=== PATIENT | female | born 1970 | race Caucasian/White ===

== ENCOUNTER 2016-05-14 09:45 | Emergency (ER) | payer OTHER ==
[~2016-05-14] VITALS: Ht 165.1 cm; Wt 47.6 kg
[~2016-05-14 09:45] MED LIST: ADVAIR 250-501 EACH INH; ALBUTEROL2.5 MG/3 M INH/SOL; AMLODIPINE BES2.5 M1 PO; ASPIRIN EC81 M1 PO; BACLOFEN10 M1 PO; BENZTROPINE ME0.5 M1 PO; BUTRANS1 EAC2 TOP; DUAC 1.2-5% GEL45 GM TOP; FLEXERIL10 MG PO; LORAZEPAM0.5 M1 PO; LYRICA100 M1 PO; MOTRIN 600 MG600 MG PO; OLANZAPINE15 M1 PO; OXYCODONE HCL5 M1 PO; OXYCODONE5 M1 PO; PAXIL10 M1 PO; PRAVASTATIN SOD10 M2 PO; PROAIR HFA8.5 GM INH; PYRIDOXINE HCL500 MG PO; VICODIN HP 3001 TAB PO
--- NOTE | 2016-05-14 10:01 | ED GENERAL ADULT ---
History of Present Illness General Chief Complaint: Fall Stated Complaint: FALL 05/07 HEAD PAIN Source: patient, old records Exam Limitations: no limitations Vital Signs & Intake/Output Vital Signs & Intake/Output Vital Signs Date Time Temp Pulse Resp B/P Pulse O2 O2 Flow FiO2 Ox Delivery Rate 05/14 1042 97.8 75 20 137/98 98 Room Air 05/14 0949 98.5 85 18 166/110 98 Room Air Allergies Coded Allergies: Penicillins (RASH 09/16/15) trazodone (RASH 09/16/15) Reconcile Medications Albuterol Sulfate 2.5 MG/3 ML VIAL.NEB 1 Vial INH/JERALD BID PRN COPD (Reported) Albuterol Sulfate (Proair Hfa) 8.5 GM HFA.AER.AD 2 PUF INH Q4-6 PRN PRN COPD (Reported) Amlodipine Besylate 5 MG TABLET 1 TAB PO DAILY B/P (Reported) Aspirin (Ecotrin*) 81 MG TABLET.DR 1 TAB PO DAILY HEART/BLOOD (Reported) Benztropine Mesylate 0.5 MG TABLET 1 TAB PO BID MENTAL HEALTH (Reported) Buprenorphine (Butrans) 1 EACH PATCH.TDWK 20 MCG TOP QW PAIN (Reported) Diazepam 2 MG TABLET 1 TAB PO BID MUSCLE SPASMS (Reported) Fluticasone/Salmeterol (Advair 250-50 Diskus) 1 EACH BLST.W.DEV 1 PUF INH BID COPD (Reported) Olanzapine 20 MG TABLET 0.5 TAB PO QPM MENTAL HEALTH (Reported) Oxycodone HCl 5 MG TABLET 1 TAB PO TID MODERATE TO SEVERE PAIN (Reported) Paroxetine HCl (Paxil) 10 MG TABLET 1 TAB PO DAILY MENTAL HEALTH (Reported) Pravastatin Sodium 10 MG TABLET 1 TAB PO DAILY CHOLESTEROL (Reported) Pregabalin (Lyrica) 100 MG CAPSULE 1 CAP PO TID NERVE PAIN (Reported) Triage Note: 46 YO FEMALE TO TRIAGE C/O CHAPMAN AND NAUSEA SINCE FALL ON 05/07. STATES SHE HIT THE FRONT OF THE L SIDE OF HER HEAD. DENIES LOC. PT HYPERTENSIVE IN TRIAGE, 166/110. STATES SHE JUST TOOK HER BP MEDS Triage Nurses Notes Reviewed? yes HPI: Patient is a 46 year old female presents complaining of headaches status post fall on 05/07. Patient tripped and fell hitting her head against a shelf. Left sided headache that radiates from the left frontal to left parietal areas. Vomiting onset on 05/09, numerous times, no vomiting since 05/09/16. Pain is currently moderate, worsens with palpation and light. Patient reports that she has been nauseous since, has had decreased appetite and oral intake. Denies loss of consciousness, numbness, weakness, any change from her chronic neck pain. (LUIS FELIPE HAMMOND) Past History Travel History Traveled to [place] past 21 day No Medical History Any Pertinent Medical History? 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 No (LUIS FELIPE HAMMOND) Review of Systems Review of Systems Constitutional: Denies: chills, fever. EENTM: Denies: blurred vision. Respiratory: Reports: no symptoms. Cardiovascular: Denies: chest pain, syncope. GI: Reports: nausea, vomiting (resolved). Denies: abdominal pain. Musculoskeletal: Reports: back pain (chronic), neck pain (chronic). Skin: Reports: no symptoms. Neurological/Psychological: Reports: see HPI. Hematologic/Endocrine: Reports: no symptoms. Immunologic/Allergic: Reports: no symptoms. (LUIS FELIPE HAMMOND) Physical Exam Physical Exam General Appearance: well developed/nourished, alert, awake Head: left-sided scalp tenderness, no palpable step-offs or deformities Eyes: Bilateral: normal appearance, PERRL, EOMI. Ears, Nose, Throat: normal pharynx, normal ENT inspection, hearing grossly normal Neck: normal inspection, supple, full range of motion, no midline tenderness Respiratory: normal breath sounds, no respiratory distress, lungs clear Cardiovascular: regular rate/rhythm Gastrointestinal: soft, non-tender Back: normal inspection, normal range of motion Extremities: normal inspection, normal capillary refill, normal range of motion, no signs of trauma Neurologic/Psych: no motor/sensory deficits, awake, alert, oriented x 3, normal mood/affect, education sales consultant II-XII nml as tested Skin: intact, normal color, warm/dry Lymphatic: no anterior cervical maria esther Core Measures ACS in differential dx? No CVA/TIA Diagnosis: No Severe Sepsis Present: No Septic Shock Present: No (LUIS FELIPE HAMMOND) Progress Differential Diagnoses I considered the following diagnoses in my evaluation of the patient: Concussion , skull fracture, intracranial bleed Plan of Care: Orders Procedure Date/time Status CT HEAD WO IV CONTRAST 05/14 1008 Active 1135: Results of CT scan discussed with patient. No acute neurologic abnormalities on initial exam or repeat exam. Discussed finding of old CVA on CT scan which patient is aware of. Appears stable for discharge area patient instructed to follow-up with her primary care provider for further evaluation. (LUIS FELIPE HAMMOND) Initial ED EKG: none (LUIS FELIPE HAMMOND) Departure Departure Time of Disposition: 1132 Disposition: HOME OR SELF CARE Condition: Stable Clinical Impression Primary Impression: Concussion Qualifiers: Encounter type: initial encounter Loss of consciousness presence/ duration: without LOC Qualified Code: S06.0X0A - Concussion without loss of consciousness, initial encounter Referrals: CAROLINA GAR (PCP/Family) Additional Instructions: Follow up with your primary doctor within 1 week for further evaluation. Call today for appointment. Departure Forms: Customer Survey General Discharge Information (LUIS FELIPE HAMMOND) PA/INTENSIVE CARE AMBULANCE PARAMEDIC Co-Sign Statement Statement: ED Attending supervision documentation- [] I saw and evaluated the patient. I have also reviewed all the pertinent lab results and diagnostic results. I agree with the findings and the plan of care as documented in the PA's/INTENSIVE CARE AMBULANCE PARAMEDIC's documentation. [X] I have reviewed the ED Record and agree with the PA's/INTENSIVE CARE AMBULANCE PARAMEDIC's documentation. [] Additions or exceptions (if any) to the PAs/INTENSIVE CARE AMBULANCE PARAMEDIC's note and plan are summarized below: [] (NORM MORAN,KAROLINA) Critical Care Note Critical Care Note Critical Care Time: non-applicable (LUIS FELIPE HAMMOND)
[2016-05-14] MEDS ORDERED: AMLODIPINE BESYL5 M1 PO (10:17)
[2016-05-14] MEDS ORDERED: OLANZAPINE20 M1 PO (10:20)
[2016-05-14] MEDS ORDERED: DIAZEPAM2 M1 PO (10:22)
[2016-05-14 10:42] VITALS: BP 137/98
--- NOTE | 2016-05-14 11:04 | CT SCAN REPORT ---
EXAMINATION: CT HEAD WITHOUT CONTRAST CLINICAL INFORMATION: Vomiting. Question concussion. COMPARISON: 01/03/2016 TECHNIQUE: Contiguous axial imaging was performed from the skull base to vertex without intravenous administration of contrast. DLP: 600 mGy-cm. FINDINGS: Stable small focus of encephalomalacia right parietal lobe most consistent with a sequelae of old infarct. Old lacunar type infarcts right caudate nucleus and left sherman radiata stable. Otherwise, there is no evidence of acute intracranial hemorrhage or territorial infarction. No abnormal mass effect or midline shift is seen. [place] to white matter differentiation is otherwise well preserved. No extra-axial fluid collections are identified. The ventricles are normal in size. The osseous structures and soft tissues are normal. The mastoid air cells and visualized portions of the paranasal sinuses are well aerated. IMPRESSION: No acute intracranial pathology. Chronic findings as above.
== END 2016-05-14 11:37 ==
LOC: ERH 09:45
DX: S06.0X0A Concussion without loss of consciousness, initial encounter (principal); W01.0XXA Fall on same level from slipping, tripping and stumbling without subsequent striking against object, initial encounter

== ENCOUNTER 2017-06-14 12:04 | Emergency (ER) | payer OTHER ==
[~2017-06-14] VITALS: Ht 162.6 cm; Wt 50.8 kg
[~2017-06-14 12:04] MED LIST changes: +AMLODIPINE BESYL5 M1 PO; +DIAZEPAM2 M1 PO; +OLANZAPINE20 M1 PO
--- NOTE | 2017-06-14 12:56 | ED HAND/WRIST INJURY COMPLAINT ---
History of Present Illness General Chief Complaint: Hand or Wrist Injury Stated Complaint: L WRIST PAIN S/P FALL LAST PM Source: patient Exam Limitations: no limitations Vital Signs & Intake/Output Vital Signs & Intake/Output Vital Signs Date Time Temp Pulse Resp B/P B/P Pulse O2 O2 Flow FiO2 Mean Ox Delivery Rate 06/14 1354 97.9 77 18 121/72 96 Room Air 06/14 1216 97.7 80 20 110/72 99 Room Air Allergies Coded Allergies: Penicillins (RASH 09/16/15) trazodone (RASH 09/16/15) Reconcile Medications Albuterol Sulfate 2.5 MG/3 ML VIAL.NEB 1 Vial INH/JERALD BID PRN COPD (Reported) Albuterol Sulfate (Proair Hfa) 8.5 GM HFA.AER.AD 2 PUF INH Q4-6 PRN PRN COPD (Reported) Amlodipine Besylate 5 MG TABLET 1 TAB PO DAILY B/P (Reported) Aspirin (Ecotrin*) 81 MG TABLET.DR 1 TAB PO DAILY HEART/BLOOD (Reported) Benztropine Mesylate 0.5 MG TABLET 1 TAB PO BID MENTAL HEALTH (Reported) Buprenorphine (Butrans) 1 EACH PATCH.TDWK 20 MCG TOP QW PAIN (Reported) Diazepam 2 MG TABLET 1 TAB PO BID MUSCLE SPASMS (Reported) Fluticasone/Salmeterol (Advair 250-50 Diskus) 1 EACH BLST.W.DEV 1 PUF INH BID COPD (Reported) Hydrocodone/Acetaminophen (Hydrocodon-Acetaminophen 5-325) 5 MG-325 MG TABLET 1-2 TAB PO Q4-6 PRN PRN pain Ibuprofen 800 MG TABLET 1 TAB PO TID pain Olanzapine 20 MG TABLET 0.5 TAB PO QPM MENTAL HEALTH (Reported) Oxycodone HCl 5 MG TABLET 1 TAB PO TID MODERATE TO SEVERE PAIN (Reported) Paroxetine HCl (Paxil) 10 MG TABLET 1 TAB PO DAILY MENTAL HEALTH (Reported) Pravastatin Sodium 10 MG TABLET 1 TAB PO DAILY CHOLESTEROL (Reported) Pregabalin (Lyrica) 100 MG CAPSULE 1 CAP PO TID NERVE PAIN (Reported) Triage Note: PT TO ED C/O LEFT WRIST PAIN S/P FALL LAST NIGHT. STATES SHE USED HER WRIST TO BREAK HER FALL. DENIES HEADSTRIKE. +CMS, +PULSES. TOOK TYLENOL LAST NIGHT. DECLINING MEDS IN TRIAGE. NO OBVIOUS DEFORMATY NOTED. Triage Nurses Notes Reviewed? yes Occurred: just prior to arrival Duration: day(s):, constant, continues in ED Timing: recent history Injury Environment: home Pain/Injury Location: Left: Wrist. Method of Injury: fall No Modifying Factors: none HPI: 47-year-old female comes into emergency room for further evaluation of left wrist pain. Pain is sharp throbbing. Continuous. Patient reports that she was playing with her dog at home and she stepped backwards and she fell. She reports that she has a history of her blood pressure dropping and that was what happened and that's why she fell. This is a chronic issue for the patient. She has been a transient pain in her left wrist with associated swelling since the fall. Comes in for further evaluation. (Fidencio Chaparro) Past History Travel History Traveled to [place] past 21 day No Medical History Any Pertinent Medical History? 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 No (Fidencio Chaparro) Review of Systems Review of Systems Constitutional: Reports: no symptoms. EENTM: Reports: no symptoms. Respiratory: Reports: no symptoms. Cardiovascular: Reports: no symptoms. GI: Reports: no symptoms. Genitourinary: Reports: no symptoms. Musculoskeletal: Reports: see HPI. Skin: Reports: no symptoms. Neurological/Psychological: Reports: no symptoms. Hematologic/Endocrine: Reports: no symptoms. Immunologic/Allergic: Reports: no symptoms. All Other Systems: Reviewed and Negative (Fidencio Chaparro) Physical Exam Physical Exam General Appearance: well developed/nourished, mild distress Head: atraumatic Eyes: Bilateral: normal appearance. Ears, Nose, Throat: normal ENT inspection, hearing grossly normal Neck: normal inspection Cardiovascular/Respiratory: no respiratory distress Back: normal inspection Wrist Left: bone tenderness, limited range of motion Hand Left: normal inspection Hand Right: normal inspection Neurologic/Tendon: normal sensation, normal motor functions, normal tendon functions, responds to pain, no evidence tendon injury, no pulse deficit Skin: intact, normal color, warm/dry Lymphatic: no anterior cervical maria esther (Fidencio Chaparro) Progress Differential Diagnosis: contusion, dislocation, fracture, sprain, tenosynovitis Plan of Care: Orders Procedure Date/time Status Durable Medical Equipment 06/14 1346 Active Diagnostic Imaging: Viewed by Me: Radiology Read. Discussed w/RAD: Radiology Read. Radiology Impression: PATIENT: ANNIE LAUREN PRESENT AGE: 47 PATIENT ACCOUNT NO: [id number] : 68 LOCATION: [facility] ORDERING PHYSICIAN: Camryn Cardona MD SERVICE DATE: 06/14/17 EXAM TYPE: RAD - XRY -WRIST COMPLETE-LEFT EXAMINATION: 5 views of the left wrist CLINICAL INFORMATION : Status post fall COMPARISON: None available. FINDINGS: There is slight cortical step-off and linear lucency along the dorsal aspect of the radius on the lateral view with overlying soft tissue swelling, concerning for a nondisplaced distal radial fracture. The bony articulations are maintained. No radiopaque foreign bodies. The scaphoid is unremarkable. IMPRESSION: There is slight cortical step-off and linear lucency along the dorsal aspect of the distal radius on the lateral view with overlying soft tissue swelling, concerning for a nondisplaced distal radial fracture. DICTATED BY: Lucas Post MD DATE/TIME DICTATED:06/14/171316 NUMERICAL CONTROL NESTING OPERATOR:LOCO DATE/TIME TRANSCRIBED:06/14/171316 CONFIDENTIAL, DO NOT COPY WITHOUT APPROPRIATE AUTHORIZATION. <Electronically signed in Other Vendor System> SIGNED BY: Lucas Post MD 06/14/17 1323 (Fidencio Chaparro) Departure Departure Disposition: HOME OR SELF CARE Condition: Stable Clinical Impression Primary Impression: Left wrist fracture Referrals: Flor Jimenez APRN (PCP/Family) Leonard Walton MD Additional Instructions: Ice. Rest. Motrin for pain. Elevation. Follow-up with orthopedic doctor provided . Please go over all results of today's visit with your primary care doctor. Contact your primary care doctor to let them know you were here in the emergency room. There may be nonspecific findings which may not be related to your visit today here in the emergency room but may require further evaluation and chronic monitoring by your primary care doctor. If you had a laceration today the chance of foreign body always remains. You should follow-up with your primary care doctor for recheck in 3-5 days for a wound check. If you had an x-ray done there is a chance that a fracture could have been missed on initial read and you should follow-up with your primary care doctor for repeat x-rays if symptoms persist. If your blood pressure was elevated here in the emergency room please have rechecked by [facility] primary care doctor within the next 48. If you were prescribed a narcotic here in the emergency room or any type of controlled substances you're not allowed to drive while taking this medication or operate any type of heavy machinery. Narcotics can make you feel lightheaded dizziness nausea and can cause constipation. You may need to tack picker a stool softener. Thank you for choosing [facility] emergency room. Please return to the emergency room immediately if you have any other concerns worsening of symptoms. Departure Forms: Customer Survey General Discharge Information Prescriptions: Current Visit Scripts Hydrocodone/Acetaminophen (Hydrocodon-Acetaminophen 5-325) 1-2 TAB PO Q4-6 PRN PRN pain #10 TAB Ibuprofen 1 TAB PO TID #30 TAB (Fidencio Chaparro) PA/BEER RUNNER Co-Sign Statement Statement: ED Attending supervision documentation- [] I saw and evaluated the patient. I have also reviewed all the pertinent lab results and diagnostic results. I agree with the findings and the plan of care as documented in the PA's/BEER RUNNER's documentation. [X] I have reviewed the ED Record and agree with the PA's/BEER RUNNER's documentation. [] Additions or exceptions (if any) to the PAs/BEER RUNNER's note and plan are summarized below: [] (Dulce MORAN,Camryn) Procedures Splinting Location: left wrist Pre-Made Type: shoulder immobilizer Hand-Made Type: orthoglass Splint Applied By: splint applied by me Pre-Proc Neuro Vasc Exam: normal Post-Proc Neuro Vasc Exam: normal (Fidencio Chaparro)
--- NOTE | 2017-06-14 13:23 | RADIOLOGY REPORT ---
EXAMINATION: 5 views of the left wrist CLINICAL INFORMATION: Status post fall COMPARISON: None available. FINDINGS: There is slight cortical step-off and linear lucency along the dorsal aspect of the radius on the lateral view with overlying soft tissue swelling, concerning for a nondisplaced distal radial fracture. The bony articulations are maintained. No radiopaque foreign bodies. The scaphoid is unremarkable. IMPRESSION: There is slight cortical step-off and linear lucency along the dorsal aspect of the distal radius on the lateral view with overlying soft tissue swelling, concerning for a nondisplaced distal radial fracture.
[2017-06-14] MEDS ORDERED: IBUPROFEN800 M1 PO (13:45)
[2017-06-14] MEDS ORDERED: HYDROCODON-ACE1 EAC2 PO (13:45)
[2017-06-14 13:54] VITALS: BP 121/72
== END 2017-06-14 14:07 ==
LOC: ERH 12:04
DX: S52.502A Unspecified fracture of the lower end of left radius, initial encounter for closed fracture (principal); W19.XXXA Unspecified fall, initial encounter; Y92.009 Unspecified place in unspecified non-institutional (private) residence as the place of occurrence of the external cause; Y93.9 Activity, unspecified
CPT/HCPCS: 73110-LT